=== PATIENT | male | born 1975 | race Caucasian/White ===

== ENCOUNTER → 2018-01-26 | Outpatient (CLI) | payer OTHER ==
[~2018-01-26] MED LIST: ADULT LOW DOSE81 MG PO; CHOLESTYRAMINE R5 GM; FLEXERIL PO; FLOMAX0.4 MG PO; GENTAMICIN SU3 MG/ML OPHTHALMIC; HYDROCODON-ACE1 EACH PO; IBUPROFEN 800800 M1 PO; IBUPROFEN 800800 MG PO; KEFLEX500 MG PO; LISINOPRIL10 MG PO; LISINOPRIL5 MG; LOPRESSOR25 PO; MUCINEX D TABL1 EACH PO; NORCO 5-325 TA1 EACH PO; OMEPRAZOLE; OMEPRAZOLE 20 M20 MG PO; PERCOCET 5-3251 EACH PO; PHENTERMINE HCL30 MG PO; QUESTRAN LIGHT P4 GM; TRAMADOL 50 MG50 MG; TRAMADOL 50 MG50 MG PO; ZOCOR 20 MG TAB20 M1 PO; ZPAK PO
== END ==
LOC: M.RAD 14:44
DX: M47.896 Other spondylosis, lumbar region (principal); M53.3 Sacrococcygeal disorders, not elsewhere classified; G89.29 Other chronic pain

== ENCOUNTER → 2018-07-04 | Outpatient (CLI) | payer OTHER | LOC: M.CT 06-27 13:00 | DX: M43.25 Fusion of spine, thoracolumbar region (principal); M53.86 Other specified dorsopathies, lumbar region; G89.29 Other chronic pain; I10 Essential (primary) hypertension ==

== ENCOUNTER 2018-12-09 02:16 | Emergency (ER) | payer BC ==
[~2018-12-09] VITALS: Ht 180.3 cm; Wt 108.9 kg
[2018-12-09] MEDS ORDERED: HYDROCHLOROTH12.5 M1 PO (02:24)
[2018-12-09 03:01] LABS: ABSOLUTE EOSINOPHILS 0.2 thou/uL (0.0-0.7); ABSOLUTE LYMPHOCYTES 2.1 thou/uL (0.8-5.3); ABSOLUTE MONOCYTES 0.5 thou/uL (0.0-1.2); ABSOLUTE NEUTROPHILS 2.9 thou/uL (1.6-8.1); BASOPHILS 0.5 %; EOSINOPHILS 2.7 %; HEMATOCRIT 41.8 % (42.0-52.0); HEMOGLOBIN 14.4 gm/dL (14.0-18.0); LYMPHOCYTES 37.5 %; MCH 32.2 pg (26.0-34.0); MCHC 34.5 g/dL (28.0-37.0); MCV 93.4 fL (80.0-100.0); MPV 7.8 fl. (7.2-11.1); NUCLEATED RBCS 0 /100WBC; PLATELET COUNT* 260 thou/uL (150-400); POLYS 51.3 %; RBC 4.48 mil/uL (4.50-6.00); RDW-CV 12.7 % (10.5-14.5); WBC 5.7 thou/uL (4.0-11.0)
[2018-12-09 03:13] LABS: ANION GAP 4 mmol/L (7-16); BUN 12 mg/dL (7-18); CALCIUM 8.3 mg/dL (8.5-10.1); CHLORIDE 105 mmol/L (98-107); CO2 29 mmol/L (21-32); CREATININE 0.8 mg/dL (0.6-1.3); GLUCOSE 94 mg/dL (70-99); POTASSIUM 3.9 mmol/L (3.5-5.1); PROTIME 9.8 Seconds (9.20-11.50); SODIUM 138 mmol/L (136-145)
[2018-12-09 03:24] LABS: ALBUMIN 3.4 g/dL (3.4-5.0); ALKALINE PHOSPHATASE 91 U/L (46-116); LIPASE 99 U/L (73-393); NT-PRO BRAIN NAT PEPTIDE 17 pg/mL (<300); SGOT 28 U/L (15-37); SGPT 51 U/L (30-65); TOTAL BILIRUBIN 0.2 mg/dL (<0.1-1.0); TOTAL PROTEIN 6.7 g/dL (6.4-8.2); TROPONIN-I LEVEL <0.06 ng/mL (<0.06)
[2018-12-09 04:10] LABS: AMP/METHAMP Negative (Negative); BARBITURATES Negative (Negative); BENZODIAZEPINES Negative (Negative); COCAINE Negative (Negative); METHADONE Negative (Negative); OPIATES Negative (Negative); PCP Negative (Negative); THC Negative (Negative)
[2018-12-09 05:05] VITALS: BP 131/81
--- NOTE | 2018-12-09 10:31 | EKG ---
[place] [address] ELECTROCARDIOGRAM REPORT Name: ALEXANDRO MAC [id number] Admission: 12/09/18 Attend Phys: Discharge: 12/09/18 Date of : 71 Report #: [id number] THIS REPORT FOR: //name// [facility] ED Test Date: 2018-12-09 Test Time: 02:23:07 Pat Name: ALEXANDRO MAC Department: Room: Gender: M [employer]: ANDRIY : 1975 Requested By: Chely Gallego Order Number: [id number] MD: Manjinder Rowland Measurements Intervals [place] Rate: 74 P: 26 [place]: 166 QRS: -2 QRSD: 91 T: 34 QT: 476 QTc: 529 Interpretive Statements Sinus rhythm Inferior infarct, old possible Prolonged QT interval Compared to ECG 01/09/2012 14:24:47 Myocardial infarct finding now present Prolonged QT interval now present Sinus bradycardia no longer present Sinus arrhythmia no longer present T-wave abnormality no longer present Electronically Signed On 12-09-2018 10:31:03 [employer] by Manjinder Rowland [email or web address] <ELECTRONICALLY SIGNED> By: Manjinder Rowland MD, [facility] 12/09/18 1031 2 2 Manjinder Rowland MD, [facility] /EPI
== END 2018-12-09 05:05 | disposition home or self-care (01) ==
LOC: M.ERS 02:16
PROVIDERS: Emergency Medicine
DX: R07.89 Other chest pain (principal); F17.210 Nicotine dependence, cigarettes, uncomplicated; I10 Essential (primary) hypertension; Z90.49 Acquired absence of other specified parts of digestive tract; Z88.5 Allergy status to narcotic agent

== ENCOUNTER → 2019-08-14 | Outpatient (CLI) | payer BC ==
[~2019-08-14] MED LIST changes: +CHLORTHALIDONE25 MG PO; +HYDROCHLOROTH12.5 M1 PO
== END ==
LOC: M.PC 01:51
DX: M46.88 Other specified inflammatory spondylopathies, sacral and sacrococcygeal region (principal); M43.27 Fusion of spine, lumbosacral region; M43.25 Fusion of spine, thoracolumbar region; M54.5 Low back pain; I10 Essential (primary) hypertension; Z90.49 Acquired absence of other specified parts of digestive tract; Z85.820 Personal history of malignant melanoma of skin

== ENCOUNTER → 2019-08-16 | Outpatient (CLI) | payer BC | END | disposition home or self-care (01) | LOC: M.PC 04:53 | DX: M53.3 Sacrococcygeal disorders, not elsewhere classified (principal); M54.5 Low back pain; G89.29 Other chronic pain; Z88.8 Allergy status to other drugs, medicaments and biological substances; Z79.899 Other long term (current) drug therapy; Z98.890 Other specified postprocedural states ==

== ENCOUNTER → 2020-08-26 | Outpatient (CLI) | payer BC ==
[2020-08-26 14:18] LABS: ABSOLUTE BASOPHILS 0.1 thou/uL (0.0-0.2); ABSOLUTE EOSINOPHILS 0.1 thou/uL (0.0-0.7); ABSOLUTE LYMPHOCYTES 2.3 thou/uL (0.8-5.3); ABSOLUTE MONOCYTES 0.7 thou/uL (0.0-1.2); ABSOLUTE NEUTROPHILS 4.4 thou/uL (1.6-8.1); BASOPHILS 0.7 %; EOSINOPHILS 1.6 %; HEMATOCRIT 44.7 % (42.0-52.0); HEMOGLOBIN 15.3 gm/dL (14.0-18.0); LYMPHOCYTES 30.7 %; MCH 31.8 pg (26.0-34.0); MCHC 34.1 g/dL (28.0-37.0); MCV 93.1 fL (80.0-100.0); MONOCYTES 9.3 %; MPV 7.9 fl. (7.2-11.1); NUCLEATED RBCS 0 /100WBC; PLATELET COUNT* 336 thou/uL (150-400); POLYS 57.7 %; RDW-CV 13.3 % (10.5-14.5); WBC 7.7 thou/uL (4.0-11.0)
== END ==
LOC: M.MRI 13:53
PROVIDERS: ATTEND Family Medicine
DX: M85.841 Other specified disorders of bone density and structure, right hand (principal); G89.29 Other chronic pain; I10 Essential (primary) hypertension; E78.00 Pure hypercholesterolemia, unspecified; M89.8X9 Other specified disorders of bone, unspecified site; F17.200 Nicotine dependence, unspecified, uncomplicated; Z88.8 Allergy status to other drugs, medicaments and biological substances; Z68.35 Body mass index [BMI] 35.0-35.9, adult